=== PATIENT | female | born 1970 | race Caucasian/White ===

== ENCOUNTER 2020-06-03 18:01 | Outpatient (CLI) | payer OTHER, SELFPAY ==
--- NOTE | ~2020-06-03 | XR_ITS ---
XR hip BI 2V w AP pelvis 06/03/2020 18:23 INDICATION: Hip pain PROCEDURE: AP pelvis and 2 views each hip COMPARISON: No prior studies for comparison. FINDINGS: Fracture, dislocation or subluxation is not identified. Pelvic rings are intact. There is a n IUD in the pelvis. The soft tissues appear within normal limits. No foreign bodies are identified. IMPRESSION: 1: NO ACUTE BONE OR JOINT ABNORMALITY IDENTIFIED. Reviewed, dictated and finalized at location A. 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
== END 2020-06-03 18:02 | disposition home or self-care (01) ==
PROVIDERS: PCP Family Medicine; Visit Provider Physician Assistant
DX: M25.559 Pain in unspecified hip (principal)
CPT/HCPCS: 73521

== ENCOUNTER 2020-12-03 07:28 | Outpatient (CLI) | payer OTHER, SELFPAY ==
--- NOTE | ~2020-12-03 | MM_ITS ---
EXAMINATION: MM screening [facility] BI w gregory HISTORY: Screening TECHNIQUE: Craniocaudal and mediolateral oblique 3-D tomosynthesis images were obtained and synthetic 2-D images were generated. CAD analysis was submitted and interpreted. COMPARISON: 08/31/2011 BREAST PARENCHYMAL COMPOSITION: There are scattered areas of fibroglandular density. FINDINGS: There is no evidence of suspicious mass, calcification, or architectural distortion to sugg est malignancy in either breast. There has been no suspicious interval change. IMPRESSION: 1. No mammographic evidence of malignancy. 2. Recommend routine screening mammography in one year. BI-RADS Category 1: Negative Reviewed, dictated and finalized at location A.
== END 2020-12-03 07:29 | disposition home or self-care (01) ==
LOC: ANHIMG 07:32
PROVIDERS: PCP Family Medicine; Visit Provider Physician Assistant
DX: Z12.31 Encounter for screening mammogram for malignant neoplasm of breast (principal)
CPT/HCPCS: 77063; 77067

== ENCOUNTER 2022-01-19 08:14 | Outpatient (CLI) | payer OTHER, SELFPAY ==
[2022-01-19 08:53] LABS: Basophils Percent Auto 0.6 % (0.2-1.2); Eosinophils Absolute Auto 0.1 K/mm3 (0-0.3); Eosinophils Percent Auto 2.3 % (0-4.4); Hematocrit 45.6 % (37.0-47.0); Hemoglobin 15.1 g/dL (12.0-15.0); Lymphocytes Absolute Auto 1.37 K/mm3 (0.9-3.2); Lymphocytes Percent Auto 28.8 % (18.3-44.2); Mean Corpuscular HGB Conc 33.1 g/dl (32-36); Mean Corpuscular Hemoglobin 32.3 pg (26-34); Mean Corpuscular Volume 97.4 fl (80-100); Mean Platelet Volume 8.8 fl (7.4-10.4); Monocytes Absolute Auto 0.3 K/mm3 (0.1-0.6); Monocytes Percent Auto 7.2 % (2.6-8.5); Neutrophils Absolute Auto 2.9 K/mm3 (1.3-6.7); Neutrophils Percent Auto 61.1 % (45.5-73.1); Platelet Count Result 255 k/mm3 (150-375); Red Blood Count 4.68 M/mm3 (4.2-5.4); Red Cell Distribution Width 12.1 % (11.5-14.5); White Blood Count 4.8 K/mm3 (4.5-10.0)
[2022-01-19 09:02] LABS: Hemoglobin A1C 5.4 % (<5.7)
[2022-01-19 09:14] LABS: Alanine Aminotransferase 44 U/L (6-35); Albumin Level 4.6 g/dL (3.5-5.1); Alkaline Phosphatase 141 U/L (38-126); Anion Gap 11 mmol/L (8-16); Aspartate Amino Transferase 37 U/L (14-36); Bilirubin,Total 0.5 mg/dL (0.2-1.3); Blood Urea Nitrogen 14 mg/dL (7-17); Calcium 9.7 mg/dL (8.4-10.2); Carbon Dioxide 25 mmol/L (22-30); Chloride 105 mmol/L (98-107); Cholesterol 296 mg/dL (0-200); Estimated Glomerular Filt Rate > 60; Glucose 108 mg/dL (65-110); HDL Direct 49 mg/dL; Sodium 141 mmol/L (137-145); Triglycerides 273 mg/dL (<150)
[2022-01-19 09:22] LABS: Rheumatoid Factor < 8.6 IU/ML (<12)
[2022-01-19 09:25] LABS: Erythrocyte Sedimentation Rate 17 mm/hr (0-20); LDL Cholesterol Direct 171 mg/dL
[2022-01-21 22:19] LABS: Anti Cyclic Citrullinated Pept <16 Units (<20)
[2022-01-22 05:53] LABS: FSH 147.6 mIU/mL (***); LH 50.6 mIU/mL (***)
== END 2022-01-19 08:15 | disposition home or self-care (01) ==
PROVIDERS: PCP Family Medicine; Referring Provider Physician Assistant; Visit Provider Nurse Practitioner Gerontology
DX: M25.50 Pain in unspecified joint (principal); E78.5 Hyperlipidemia, unspecified; R42 Dizziness and giddiness; Z83.49 Family history of other endocrine, nutritional and metabolic diseases; Z82.49 Family history of ischemic heart disease and other diseases of the circulatory system
CPT/HCPCS: 36415; 80053; 80061; 83001; 83002; 83036; 84443; 85025; 85652; 86038; 86200; 86430

== ENCOUNTER 2022-03-14 00:40 | Day surgery (SDC) | payer OTHER, SELFPAY ==
[2022-01-19 13:32] VITALS: BMI 29.5
--- NOTE | 2022-03-03 13:49 | PC.NURSE ---
Patient was rescheduled from 02/07/22 to 03/14/22. PAT call was previously done. Patient states no changes in medical history or medication information since then. Aware of new appointment of 03/14/22 0700/0830. Patient has no questions.
[2022-03-14 07:11] VITALS: BP 148/73; PULSE 76; RESP 16; TEMP 36.2; O2SAT 97; BMI 30.2
[2022-03-14] MEDS: LACTATED RINGERS 1,000 ML 150 ML IV CONT (07:23)
--- NOTE | 2022-03-14 07:45 | PM.HPGS ---
History of Present Illness History of Present Illness Consent: Risks, benefits, and alternatives have been discussed and questions answered. Patient agrees to proceed with procedure. Chief complaint: garcia's esophagus, GERD, neoplasm screening Narrative: Day Ramsey is a 51 year old female Presents for screening colonoscopy. As well as an EGD. Patient reports that her bowel habits are normal. She denies abdominal pain. She has had no bleeding. She desires neoplasia screening colonoscopy. Patient also has a history of GE reflux disease. She has a underlying history of Garcia's esophagus. Her last exam 2014. Patient denies dysphagia. She has no heartburn. She does take PPI for treatment of acid reflux that works well. Occasionally when she misses the dose she notices regurgitation fairly frequently. Patient has had no weight loss or bleeding she presents today for surveillance EGD. Review of Systems Review of Systems: Review of systems noncontributory. [facility]LY [facility] Past Medical History Medical History Barretts esophagus Dizziness GERD (gastroesophageal reflux disease) Labyrinthine dysfunction Surgical History Surgical History History of esophagogastroduodenoscopy (EGD) Family History Family History Sibling Family history of migraine headaches Hypertension Asthma Malignant neoplasm of prostate Patient's sister is in good health Patient's brother is in good health Mother Family history of lung cancer, Onset Age: 49 Father Family history of cardiovascular disease, Onset Age: 51 Social History Social History (Updated 01/04/22 @ 08:24 by Raven Peter) Social History: Smoking packs per day: 0.5 Smoking cigarettes per day: 10.0 Years smoked: 10 Smoking pack-years: 5.00 Smoking status: Former smoker Tobacco type: cigarettes Second hand tobacco smoke exposure: No Smoking end date: 05/29/04 Alcohol intake: current Drinks per week: 5 Alcohol use details: Rarely Substance use: never Substance use type: does not use Living arrangements: with family Gender identity (if verbalized by the patient): Female Sexual Orientation (if Verbalized by the Patient): Straight or Heterosexual Spiritual care concerns: No Meds Home Medications and Allergies Home Medications Medication Instructions Recorded Confirmed Type meclizine 25 mg tablet 25 mg PO TID PRN dizziness #90 tabs 01/04/22 03/14/22 Rx omeprazole 40 mg capsule,delayed 40 mg PO DAILY #90 caps 01/04/22 03/14/22 Rx release Allergies Allergy/AdvReac Type Severity Reaction Status Date / Time Quinolones Allergy Mild unknown Verified 03/14/22 07:10 Vital Signs Vital Signs - 24 hr 03/14/22 07:11 Temperature 97.1 F L Pulse Rate 76 Respiratory Rate 16 Blood Pressure 148/73 H Pulse Oximetry 97 Oxygen Delivery Room Air Exam Narrative: Physical exam reveals patient be alert. Vital signs stable. HEENT exam is unremarkable. Patient is anicteric. Lungs are clear to auscultation and percussion heart without murmur. Abdomen bowel sounds present soft nontender with no hepatosplenomegaly. Digital rectal exam is normal. Assessment and Plan Assessment and plan (1) Colon cancer screening: Code(s): Z12.11 - Encounter for screening for malignant neoplasm of colon Status: Acute Assessment and Plan: Patient appears to be at average risk for colon polyps. Neoplasia screening colonoscopy to be performed today. (2) Garcia esophagus: Code(s): K22.70 - Garcia's esophagus without dysplasia Status: Acute Assessment and Plan: Patient previously identified to have Garcia's esophagus. Clinically stable. Plan is for surveillance EGD now consider this at 3 year intervals. (3)
--- NOTE | 2022-03-14 08:00 | WPDANESEPPF ---
Anes - Initial Pre Proc Eval Procedure: Operation Date: 03/14/22 08:30 Proposed Procedures p Esophagogastroduodenoscopy & Screening Colonoscopy - Hugh Darnell MD Date/Time: 03/14/22 08:00 Surgeon: Hugh Darnell MD Pre Op Diagnosis: garcia's esophagus, GERD, neoplasm screening Patient Data Age: 51 Gender: F Height: 1.55 m Weight: 72.5 kg Last Vital Signs Temp 97.1 F L 03/14/22 07:11 Pulse 76 03/14/22 07:11 Resp 16 03/14/22 07:11 BP 148/73 H 03/14/22 07:11 Pulse Ox 97 03/14/22 07:11 O2 Del Method Room Air 03/14/22 07:11 Allergies Allergy/AdvReac Type Severity Reaction Status Date / Time Quinolones Allergy Mild unknown Verified 03/14/22 07:10 Home Medications Medication Instructions Recorded Confirmed Type meclizine 25 mg tablet 25 mg PO TID PRN dizziness #90 tabs 01/04/22 03/14/22 Rx omeprazole 40 mg capsule,delayed 40 mg PO DAILY #90 caps 01/04/22 03/14/22 Rx release Patient hx anesthesia problems: none Family hx anesthesia problems: none Results Review: All pre-operative results and documents have been reviewed as part of the pre-operative evaluation. [facility] Past Medical History Medical History Barretts esophagus Dizziness GERD (gastroesophageal reflux disease) Labyrinthine dysfunction Surgical History Surgical History History of esophagogastroduodenoscopy (EGD) Family History Family History Sibling Family history of migraine headaches Hypertension Asthma Malignant neoplasm of prostate Patient's sister is in good health Patient's brother is in good health Mother Family history of lung cancer, Onset Age: 49 Father Family history of cardiovascular disease, Onset Age: 51 Social History Social History (Updated 01/04/22 @ 08:24 by Raven Peter) Social History: Smoking packs per day: 0.5 Smoking cigarettes per day: 10.0 Years smoked: 10 Smoking pack-years: 5.00 Smoking status: Former smoker Tobacco type: cigarettes Second hand tobacco smoke exposure: No Smoking end date: 05/29/04 Alcohol intake: current Drinks per week: 5 Alcohol use details: Rarely Substance use: never Substance use type: does not use Living arrangements: with family Gender identity (if verbalized by the patient): Female Sexual Orientation (if Verbalized by the Patient): Straight or Heterosexual Spiritual care concerns: No Anes - Eval Final PreProcedure Day of Procedure 03/14/22 08:00 Patient weight: overweight Heart: regular rate and rhythm Lungs: clear to auscultation Airway: Mallampati scale class II Neurological: alert and oriented Last oral intake: >/= 8 hours ASA classification: II Emergent: no Anesthetic plan: proceed Anesthesia type and monitoring: general GIVS and standard monitoring Results Review: All pre-operative results and documents have been reviewed as part of the pre-operative evaluation. Informed Consent: The patient's anesthetic plan and its attendant risks and benefits were discussed with the patient/family/POA. Questions were solicited and answers provided to the satisfaction of the patient/family/POA.
--- NOTE | 2022-03-14 08:43 | SUR.OPER ---
EGD ended at 837, Colonoscopy began at 841.
[2022-03-14 08:55] VITALS: BP 123/76; PULSE 82; RESP 16; O2SAT 97
[2022-03-14 09:05] VITALS: BP 116/73; PULSE 84; RESP 22; O2SAT 99
[2022-03-14 09:15] VITALS: BP 140/95; PULSE 71; RESP 20; O2SAT 100
== END 2022-03-14 09:29 | disposition home or self-care (01) ==
PROVIDERS: PCP Family Medicine; Visit Provider Internal Medicine Gastroenterology
PROC: 0DJ08ZZ Inspection of Upper Intestinal Tract, Via Natural or Artificial Opening Endoscopic (ICD-10-PCS; CPT 43235; principal; 2022-03-14 08:30)
DX: Z12.11 Encounter for screening for malignant neoplasm of colon (principal); K64.8 Other hemorrhoids; K21.9 Gastro-esophageal reflux disease without esophagitis; K22.70 Barrett's esophagus without dysplasia; Z87.891 Personal history of nicotine dependence
CPT/HCPCS: 45378; 43239; 88305; J2704; J7120

== ENCOUNTER 2022-06-30 14:57 | Outpatient (CLI) | payer OTHER, SELFPAY ==
[2022-06-30 15:39] LABS: Appearance Urine Clear (Clear); Bacteria Urine 1+ /hpf; Bilirubin Urine Negative (Negative); Blood Urine Negative (Negative); Color Urine Yellow (Yellow); Glucose Urine UA Negative (Negative); Ketones Urine Negative (Negative); Leukocyte Esterase Ur 2+ LEU/UL (Negative); Nitrate Urine Negative (Negative); Non Pathogenic Casts 0-2; Protein Urine Negative (Negative); Specific Grav Ur 1.017 (1.001-1.035); Squamous Epithelial Cell Urine Occasional /hpf (Few); WBC Urine >100 /hpf
[2022-06-30 15:45] LABS: Add Urine Microscopic? YES
== END 2022-06-30 14:58 | disposition home or self-care (01) ==
LOC: ANHLAB 14:59
PROVIDERS: PCP Family Medicine; Visit Provider Nurse Practitioner Gerontology
DX: R30.0 Dysuria (principal)
CPT/HCPCS: 81001; 87086; 87088

== ENCOUNTER 2022-11-13 08:00 | Outpatient (RCR) | payer OTHER, SELFPAY ==
--- NOTE | 2022-10-05 16:31 | OPREHPOC ---
Outpatient Therapy Plan of Care This is a Multidisciplinary Plan of Care that may contain components documented by all disciplines (PT, OT, and ST.) PT Problem 1 PT Problem #1 Knowledge Deficit PT Goal 1 Goal Independent with HEP Target Visit 6 PT Problem 2 PT Problem #2 Pain PT Goal 1 Goal pain down to 2/10 at the end of the work day Target Visit 6 PT Problem 3 PT Problem #3 Impaired Range of Motion PT Goal 1 Goal KRYSTAL rotation 65 degrees KRYSTAL lateral felxion to 40 degrees Target Visit 6
--- NOTE | 2022-10-05 16:34 | PTOPEVAL1 ---
Assessment and note entered by Olvin Jefferson, PT Evaluation Information Assessment Status Evaluation Diagnosis Chronic neck pain Subjective Information Patient has chronic neck pain was seeing a chiropractor she likes, but he retired and she saw a new one that caused the neck to pop and since then has been having more pain. 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 (is working on getting a headset). Also uses a heating pad and aleeve for pain relief. Reported Pain Level Pain Score 3: Self Report Assessment PT Clinical Summary Day is a 51 year old female coming into the clinic with a diagnosis of chronic neck pain. Patient has tight upper traps, weak scapular muscles, and decreased cervical range of motion. Physical therapy will work with the patient on gentle range of motion, strengthening, stretching, along with manual and modalities for pain control . Education on workplace ergonomics would also help. Plan of Care Interventions Electrical Stimulation,Gait Training,Hot Pack/Cold Pack,Manual Therapy,Neuro Re-education,Patient/ Caregiver Education,Therapeutic Activities, Therapeutic Exercise,Ultrasound Other Interventions cupping, taping, IASTM PT Services Indicated Yes Treatment Frequency and 1-2x/wk for 4 weeks Duration These treatments will address the objective and functional deficits as defined above. The patient will be advanced safely and appropriately in order for the patient to progress towards his/her prior level of function. Additional exercises will be introduced and as well as a comprehensive home exercise program upon discharge, if needed, ?to ensure carryover of functional gains achieved in the clinic. This treatment plan has been reviewed and agreement upon by the patient.
--- NOTE | 2022-10-12 08:10 | PCPTNOTE ---
Late note for 10/11/22, due to [employer] being down. Patient called & cancelled scheduled appointment this date due to work.
--- NOTE | 2022-11-01 08:44 | PCPTNOTE ---
Patient called & cancelled scheduled appointment this date due to bronchitis
--- NOTE | 2022-11-13 08:56 | PTOPDC ---
Assessment and note entered by Olvin Jefferson, PT Evaluation Information Assessment Status Discharge Diagnosis Chronic neck pain Subjective Information Patient is doing better at work and getting a head set so she is not cradling her phone with her neck and putting it in an awkward position. Reports doing her exercises which take care of neck pain during the day, Still has pain at night with sleeping. Reported Pain Level Pain Score 0: Self Report Additional Pain Score Comments will get up to 6-7 when waking her up from sleep. Assessment PT Clinical Summary Day is a 52 year old female coming into the clinic with a diagnosis of chronic neck pain. She was evaluated on 10/04/22 and has attended 4 sessions. She has met all goals besides her R lateral flexion range of motion goal. Patient reports that the exercises throughout the day are helping her not have issues at work. She is still having trouble with her sleep, but is trying out new pillows. Patient feels okay with being discharged with her HEP. Plan of Care PT Services Indicated No
== END 2022-11-14 08:32 | disposition home or self-care (01) ==
LOC: ANHPT 08:00
PROVIDERS: PCP Family Medicine; Visit Provider Nurse Practitioner
DX: M54.2 Cervicalgia (principal); G89.29 Other chronic pain
CPT/HCPCS: 97110; 97140; 97161

== ENCOUNTER → 2022-12-21 15:58 | Outpatient (CLI) | payer OTHER, SELFPAY ==
--- NOTE | ~2022-12-21 | MM_ITS ---
EXAMINATION: MM screening [facility] BI w gregory HISTORY: Screening mammogram TECHNIQUE: Craniocaudal and mediolateral oblique 3-D tomosynthesis images were obtained and synthetic 2-D images were generated. CAD analysis was submitted and interpreted. COMPARISON: 12/03/2020, 08/31/2011 BREAST PARENCHYMAL COMPOSITION: The breasts are heterogeneously dense, which may obscure small masses . FINDINGS: No suspicious mass, calcification, or architectural distortion are identified in either lorena ast to suggest malignancy. There has been no suspicious interval change. IMPRESSION: 1. No mammographic evidence of malignancy. 2. Recommend routine screening mammography in one year. BI-RADS Category 1: Negative Reviewed, dictated and finalized at location A.
== END ==
PROVIDERS: PCP Nurse Practitioner; Visit Provider Nurse Practitioner
DX: Z12.31 Encounter for screening mammogram for malignant neoplasm of breast (principal)
CPT/HCPCS: 77063; 77067

== ENCOUNTER 2023-07-20 07:50 | Outpatient (CLI) | payer OTHER, SELFPAY ==
[2023-07-20 08:21] LABS: Basophils Percent Auto 0.9 % (0.2-1.2); Eosinophils Absolute Auto 0.1 K/mm3 (0-0.3); Eosinophils Percent Auto 1.7 % (0-4.4); Hematocrit 44.4 % (37.0-47.0); Hemoglobin 14.8 g/dL (12.0-15.0); Immature Granulocyte Absolute 0.01 K/mm3 (0.00-0.031); Immature Granulocyte Percent A 0.2 % (0-0.5); Lymphocytes Absolute Auto 1.49 K/mm3 (0.9-3.2); Lymphocytes Percent Auto 32.4 % (18.3-44.2); Mean Corpuscular HGB Conc 33.3 g/dl (32-36); Mean Corpuscular Hemoglobin 32.2 pg (26-34); Mean Corpuscular Volume 96.7 fl (80-100); Mean Platelet Volume 8.8 fl (7.4-10.4); Monocytes Absolute Auto 0.4 K/mm3 (0.1-0.6); Monocytes Percent Auto 8.7 % (2.6-8.5); Neutrophils Absolute Auto 2.6 K/mm3 (1.3-6.7); Neutrophils Percent Auto 56.1 % (45.5-73.1); Platelet Count Result 277 k/mm3 (150-375); Red Blood Count 4.59 M/mm3 (4.2-5.4); Red Cell Distribution Width 12.2 % (11.5-14.5); White Blood Count 4.6 K/mm3 (4.5-10.0)
[2023-07-20 08:38] LABS: Alanine Aminotransferase 57 U/L (6-35); Albumin Level 4.5 g/dL (3.5-5.1); Alkaline Phosphatase 131 U/L (38-126); Anion Gap 6 mmol/L (8-16); Aspartate Amino Transferase 45 U/L (14-36); Bilirubin,Total 0.5 mg/dL (0.2-1.3); Blood Urea Nitrogen 11 mg/dL (7-17); Calcium 9.9 mg/dL (8.4-10.2); Carbon Dioxide 27 mmol/L (22-30); Chloride 107 mmol/L (98-107); Cholesterol 290 mg/dL (0-200); Estimated Glomerular Filt Rate > 60; Glucose 110 mg/dL (65-110); HDL Direct 43 mg/dL; Sodium 140 mmol/L (137-145); Triglycerides 191 mg/dL (<150)
[2023-07-20 08:49] LABS: LDL Cholesterol Direct 184 mg/dL
[2023-07-20 10:30] LABS: Hepatitis C Virus Antibody Negative (Negative)
== END 2023-07-20 07:51 | disposition home or self-care (01) ==
LOC: ANHLAB 07:53
PROVIDERS: PCP Nurse Practitioner; Visit Provider Nurse Practitioner
DX: Z13.29 Encounter for screening for other suspected endocrine disorder (principal); Z13.228 Encounter for screening for other metabolic disorders; Z13.0 Encounter for screening for diseases of the blood and blood-forming organs and certain disorders involving the immune mechanism; Z11.59 Encounter for screening for other viral diseases
CPT/HCPCS: 36415; 80053; 80061; 84443; 85025; 86803

== ENCOUNTER 2023-08-17 09:16 | Outpatient (CLI) | payer OTHER, SELFPAY ==
--- NOTE | ~2023-08-17 | CT_ITS ---
CT Scan of the Chest without Contrast: Clinical Indication: Lung cancer screening, prior smoker Technique: Contiguous sections were acquired throughout the chest without intravenous contrast. Dose reduction technique was used on this scan by utilizing automated exposure control and iterative recon struction technique. The dose-length product (DLP) was 93.65 mGy-cm. Findings: There is no evidence of any significant mediastinal, hilar or axillary lymphadenopathy. The mediastin al soft tissues appear normal. There is no evidence of pleural or pericardial effusion. The lungs are clear. No pulmonary nodules or infiltrates are noted. Images through the upper abdomen reveal no abnormalities. Impression: Lung RADS 1: Negative. 12 month follow-up screening CT advised. Reviewed, dictated and finalized at location . Impression: Lung RADS 1: Negative. 12 month follow-up screening CT advised.
--- NOTE | ~2023-08-17 | US_ITS ---
Limited Abdominal Sonogram: Real-time sonographic imaging of the right upper quadrant was performed. Clinical History: Abnormal liver enzyme levels Findings: The liver appears echogenic, with no evidence of mass lesion or bile duct dilatation. Main portal vein demonstrates normal direction of flow. The gallbladder is well distended, and appears no rmal with no evidence of gallstone or wall thickening. The common bile duct measures 2 mm. The visua lized pancreas, aorta, and IVC are unremarkable. Impression: Diffuse fatty infiltration of liver. Reviewed, dictated and finalized at location M. Impression: Diffuse fatty infiltration of liver.
== END 2023-08-17 09:17 | disposition home or self-care (01) ==
LOC: ANHIMG 09:19
PROVIDERS: PCP Nurse Practitioner; Visit Provider Nurse Practitioner
DX: Z12.2 Encounter for screening for malignant neoplasm of respiratory organs (principal); R74.8 Abnormal levels of other serum enzymes; K76.0 Fatty (change of) liver, not elsewhere classified; Z87.891 Personal history of nicotine dependence
CPT/HCPCS: 71271; 76705

== ENCOUNTER 2024-12-31 09:39 | Outpatient (CLI) | payer OTHER, SELFPAY ==
--- NOTE | ~2024-12-31 | XR_ITS ---
MODIFIED ESOPHAGRAM HISTORY: Dysphagia. TECHNIQUE: Modified barium esophagram was performed on 12/31/2024. I administered fluoroscopy and performed the exam with speech pathologist. Patient was seated for lateral fluoroscopic imaging for ingestion of thin liquids, pudding, solids and quantified amounts, followed by thin liquids in uncontrolled amounts. This was recorded on tape. A single fluoroscopic spot image was also recorded. The DAP for this procedure was 0.904 Gycm2. The amount of fluoroscopy time used during this procedure was 1.4 minutes. FINDINGS: Oral stage: Adequate function. Pharyngeal stage: Adequate function. Cervical/esophageal stage: Adequate function. IMPRESSION: Patient tolerated regular consistency oral feedings in the upright position. Please correlate with speech pathologist findings and specific feeding recommendations. Reviewed, dictated and finalized at location A. IMPRESSION: Patient tolerated regular consistency oral feedings in the upright position. Please correlate with speech pathologist findings and specific feedi ng recommendations.
--- OUTSIDE RECORDS SUMMARY | 2024-12-31 10:26 | XMS_ITS | Clinical Summary ---
Author Organization [facility] Address [address] [place] [address] Care Team Providers Care Gem Expert Name Role Phone Abel Youngblood MD Primary Care Provider [phone] Source Comments [facility],non-owned Affiliates and Associated Physician Practices is amultiple site organization consisting of ambulatory clinics and hospital sitesin [place], [place], [place] and [place]. This disclosure is being madepursuant to the Care Everywhere program and may not contain all information available regarding this patient. 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 Gender Identity Not on file Sexual Orientation Not on file Plan of Treatment Health Maintenance Due Date Last Done Comments COLOGUARD (AGES 45-75) - COL ON CA SCREENING 1969 COLON MONITORING 1969 COLONOSCOPY - COLON CA SCREENING 1969 CT COLONOGRAPHY - COLON CA SCREENING 1969 Colorectal Cancer Screening 1969 FIT - COLON CA SCREENING 1969 FLEX SIG - COLON CA SCREENING 1969 LIPID TESTING 1969 MAMMOGRAM 1969 HIV SCREENING 1984 HEPATITIS C SCREENING 10/30/1987 DTAP/TDAP/TD VACCINES (1 - Tdap) 1988 HEPATITIS B VACCINE (1 of 3 - 19+ 3-dose series) 1988 PNEUMOCOCCAL VACCINE 50+ (1 of 1 - PCV) 11/04/2019 ZOSTER VACCINE (1 of 2) 11/04/2019 DEPRESSION SCREENING 04/30/2024 COVID-19 VACCINE (2023-2 5 season) 2024 INFLUENZA VACCINE (#1) 2024 HIB VACCINE Aged Out No longer eligi ble based on patient's age to complete this topic HPV VACCINE Aged Out No longer eligi ble based on patient's age to complete this topic MENINGOCOCCAL (Group B) VACC INE SHARED DECISION-MAKING Aged Out No longer eligibl e based on patient's age to complete this topic MENINGOCOCCAL GROUPS A/C/Y/W VACCINE Aged Out No longer eligible b ased on patient's age to complete this topic Insurance [facility] Care Teams Gem Expert Relationship Specialty Start Date End Date Abel Youngblood MD [address] [place] [id number] PCP - General 03/15/22
--- NOTE | 2024-12-31 10:35 | REHSTMBS ---
Assessment and note entered by Corin Cruz, AUTOMATIC COIN MACHINE MECHANIC Modified Barium Swallow Evaluation Feeding Type Recommended Oral Food Consistency Regular, Level 7 Liquid Consistency Thin (0) ST Clinical Summary The patient is a 4 year old female referred for a MBS secondary to frequent coughing reported with liquids. The patient was positioned in a lateral view and presented the following consistencies: 5cc/thin liquid barium, thin liquid barium via cup and straw, pudding mixed with barium paste, and cracker coated with barium paste. Oral Stage: Timely oral preparation and transit for all consistencies. Pharyngeal Stage: When presented thin, pudding and solid consistencies the swallow initiation was viewed to be timely without viewed aspiration or penetration for all consistencies. In addition, no residual was viewed to remain in the vallecula or pyriform sinus. Recommend: 1. Regular Diet / Level 7 2. Thin Liquid / Level 0 3. May consider other assessment or medication review given history of GERD as contributing factor.
== END 2024-12-31 09:40 | disposition home or self-care (01) ==
PROVIDERS: PCP Nurse Practitioner; Visit Provider Nurse Practitioner
DX: R13.10 Dysphagia, unspecified (principal)
CPT/HCPCS: 74230; 92611